=== PATIENT | male | born 1995 | race Caucasian/White ===

== ENCOUNTER → 2018-12-25 10:04 | Outpatient (CLI) | payer OTHER, SELFPAY ==
[2018-12-25 10:57] LABS: Hematocrit 44.3 % (41-53); Hemoglobin 15.1 g/dL (13.5-17.5)
== END ==
PROVIDERS: Visit Provider Physician Assistant
DX: Z01.818 Encounter for other preprocedural examination (principal)
CPT/HCPCS: 36415; 85014; 85018

== ENCOUNTER → 2019-01-03 16:28 | Outpatient (CLI) | payer OTHER, SELFPAY ==
--- NOTE | 2019-01-10 16:26 | PM.PFT.1 ---
Pulmonary Function Test Referral & Results Date Patient Seen: 01/03/19 Requesting provider: Yadi Jimenez Indication: Asthma Results: The spirometry demonstrates an FVC of 5.85 L which is 96% of predicted. The FEV1 was measured at 3.67 L which is 73% of predicted. The FEV1/FVC ratio was 63 which is 75% of predicted. Following the administration of bronchodilator there was 12% improvement in FEV1 and a 30% improvement in FEF 25-75%. Lung volumes show an SVC of 5.78 L which is 99% of predicted. The diffusing capacity was measured at 35.16 which is 96% of predicted. The maximum voluntary ventilation was normal Interpretation: This study demonstrates mild obstructive lung disease with some limited evidence of benefit following bronchodilator based on improvement in FEV1 and FEF 25-75% This is consistent a diagnosis of asthma
== END ==
PROVIDERS: Visit Provider Physician Assistant
DX: J45.909 Unspecified asthma, uncomplicated (principal)
CPT/HCPCS: 94060; 94726; 94729